=== PATIENT | female | born 1975 | race Two or more races ===

== ENCOUNTER 2021-12-03 18:38 | Emergency (ER) | payer OTHER ==
[~2021-12-03] VITALS: Ht 167.6 cm; Wt 68.0 kg
[2021-12-03 19:10] LABS: HEMATOCRIT 39.7 % (31.2-41.9); MEAN CORPUSCULAR HEMOGLOBIN 30.6 uug (24.7-32.8); MEAN CORPUSCULAR VOLUME 92.3 fL (75.5-95.3); PLATELET COUNT (AUTO) 241 K/uL (179-408)
[2021-12-03] MEDS ORDERED: ONDANSETRON 4 MG/2 ML VIAL IV ONE (19:15)
[2021-12-03] MEDS ORDERED: MECLIZINE HCL 25 MG TABLET PO ONE (19:15)
[2021-12-03] MEDS ORDERED: IV NS 1000 ML 1,000 ML IV ONE (19:15)
[2021-12-03 19:19] LABS: CARBON DIOXIDE 26 mmol/L (21-32); CHLORIDE 103 mmol/L (98-107); CREATININE 0.8 mg/dL (0.6-1.3); GLUCOSE 120 mg/dL (74-106); POTASSIUM 3.7 mmol/L (3.5-5.1); UREA NITROGEN, BLOOD 11 mg/dL (7-18)
[2021-12-03] MEDS ORDERED: MECLIZINE HCL 25 MG TABLET ONE ×2 (19:25→19:26)
[2021-12-03] MEDS ORDERED: ONDANSETRON 4 MG/2 ML VIAL ONE (19:25)
[2021-12-03 21:11] LABS: *BILIRUBIN,URIN NEGATIVE (NEGATIVE); *BLOOD, URINE 1+ (NEGATIVE); *CLARITY,URINE CLEAR (CLEAR); *COLOR,URINE YELLOW (YELLOW); *KETONES,URINE TRACE (NEGATIVE); *UROBILINOGEN,URINE 0.2 E.U./dl (NORMAL); LEUKOCYTE ESTERASE ,URINE 1+ (NEGATIVE); NITRITE, URINE NEGATIVE (NEGATIVE); UGLUCOSE NEGATIVE (NEGATIVE)
--- NOTE | 2021-12-03 21:45 | NUR ---
Patient states she feel better now.
--- NOTE | 2021-12-03 21:53 | NUR ---
IV removed. Catheter intact and site benign. Pressure and 4x4 gauze applied to site. No bleeding noted.
--- NOTE | 2021-12-03 21:58 | NUR ---
Patient discharged to home in stable condition with friend taking patient home. Written and verbal after care instructions given. Patient verbalizes understanding of instructions. Stressed follow up or return to ER for worsening s/s.
[2021-12-03 22:09] LABS: BACTERIA,URINE FEW /HPF (NONE SEEN); SQUAMOUS EPITHELIAL CELL,UR FEW /HPF (NONE SEEN)
[2021-12-03 22:11] VITALS: BP 144/88
== END 2021-12-03 22:12 | disposition home or self-care (01) ==
LOC: ER 18:38
DX: R55 Syncope and collapse (principal); E86.0 Dehydration; Z72.820 Sleep deprivation; R82.71 Bacteriuria; F17.210 Nicotine dependence, cigarettes, uncomplicated; Z20.822 Contact with and (suspected) exposure to COVID-19
CPT/HCPCS: 99285; 96374; 71045; 96361; 87426; 80048; 81001; 85025; 87086; 84484; 36415; 93005; J2405; J7040; A4663; J8597